=== PATIENT | female | born 1970 | race Caucasian/White ===

== ENCOUNTER 2022-01-01 16:14 | Emergency (ER) | payer MEDICAID ==
[~2022-01-01] VITALS: Ht 160 cm; Wt 906.7 kg
[2022-01-01 16:50] VITALS: BP 123/74
--- NOTE | 2022-01-01 16:57 | NUR ---
PT ASSISTED BY WHEELCHAIR TO BED 02
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
--- NOTE | 2022-01-01 17:00 | NUR ---
LEFT LEG ELEVATED ON PILLOWS
--- NOTE | 2022-01-01 17:07 | NUR ---
DR PEDRAZA AT BEDSIDE
--- NOTE | 2022-01-01 17:59 | NUR ---
XRAY AT BEDSIDE
--- NOTE | 2022-01-01 18:50 | NUR ---
PT TAKEN TO CT VIA WC
--- NOTE | 2022-01-01 18:59 | NUR ---
PT RETURNED FROM CT
--- NOTE | 2022-01-01 19:27 | NUR ---
Pt report given to RICHIE Lowry. Transfer of care at this time.
[2022-01-01 19:41] VITALS: BP 118/64
--- NOTE | 2022-01-01 19:42 | NUR ---
Patient discharged with v/s stable. Written and verbal after care instructions given and explained. Patient verbalized understanding. Ambulatory with steady gait. All questions addressed prior to discharge. Advised to follow up with PMD. VSS, A/OX4, AMBULATORY, UNLABORED BREATHING, AND CALM DEMEANOR.
== END 2022-01-01 19:42 | disposition home or self-care (01) ==
LOC: MED 16:14
DX: S93.402A Sprain of unspecified ligament of left ankle, initial encounter (principal); W01.0XXA Fall on same level from slipping, tripping and stumbling without subsequent striking against object, initial encounter; Y93.89 Activity, other specified; Y92.89 Other specified places as the place of occurrence of the external cause; Y99.8 Other external cause status
CPT/HCPCS: 73610; 73630; 73700; 99284; Q0092